=== PATIENT | female | born 1970 | race African-American/Black ===

== ENCOUNTER 2016-04-28 17:35 | Emergency (ER) | payer OTHER ==
[2016-04-28 18:12] VITALS: TEMP 99.3; BMI 29.7
[2016-04-28] MEDS ORDERED: ONDANSETRON *ODT* 4 MG TABLET SL ONE (18:15)
[2016-04-28] MEDS ORDERED: SODIUM CHLORIDE 1,000 ML IV STA ×2 (18:16→20:00)
[2016-04-28] MEDS ORDERED: morphine CARPU-JECT 4 MG/1 ML DISP.SYRIN IVPUSH ONE ×2 (18:16→20:00)
[2016-04-28 18:43] LABS: BASOPHIL 0.3 % (0-2.0); EOSINOPHIL 0.5 % (0-4.5); MCH 21.4 pg (25.7-33.7); MCHC 30.6 g/dl (32.0-36.0); MEAN PLT VOLUME 8.1 fl (7.5-11.1); NEUTROPHILS 83.6 % (42.8-82.8); PLATELET COUNT 285 K/MM3 (134-434); RDW 20.1 % (11.6-15.6)
[2016-04-28] MEDS ORDERED: ONDANSETRON 4 MG/2 ML VIAL IVPUSH ONE (18:57)
[2016-04-28] MEDS ORDERED: ONDANSETRON *ODT* 4 MG TABLET ONE (18:58)
[2016-04-28] MEDS ORDERED: morphine CARPU-JECT 4 MG/1 ML DISP.SYRIN ONE ×2 (18:58→20:08)
[2016-04-28 19:28] LABS: ALK PHOS 67 U/L (45-117); ANION GAP 9 (8-16); BILIRUBIN,TOTAL 0.4 mg/dL (0.2-1.0); CALCIUM 8.1 mg/dL (8.5-10.1); CO2 26 mmol/L (21-32); CREATININE 0.9 mg/dL (0.55-1.02); GLUCOSE,RANDOM 79 mg/dL (74-106); SGOT/AST 12 U/L (15-37); SGPT/ALT 15 U/L (12-78)
[2016-04-28 20:49] LABS: ANISOCYTOSIS 1+; HYPOCHROMIA 2+; MICROCYTOSIS 2+; OVALOCYTES 1+
--- NOTE | 2016-04-28 22:37 | PDOC ---
History of Present Illness - General Chief Complaint: Pain, Acute Stated Complaint: VOMITING/DIARRHEA Time Seen by Provider: 04/28/16 18:20 History Source: Patient Exam Limitations: No Limitations - History of Present Illness Travel History: No Initial Comments: 04/28/16 22:31 46yo Female patient presents to ED c/o severe abd pain with vomiting, diarrhea, chills, and subjective fever. She reports similar symptoms approximately 3 weeks ago, and was evaluated by Oscar Macias. Patient was prescribed antibiotics and was told to f/u with Dr. Keith randolph. She states symptoms went away so she delayed f/u with GI. However, symptoms returned yesterday and worse. LNMP: last week. Last Meal 3 days ago. Denies any other complaints at this time. Timing/Duration: reports: getting worse Quality: reports: severe, stabbing Abdominal Pain Onset Location: reports: LLQ Pain Radiation: reports: no radiation Activities at Onset: reports: no specific activity Treatment Prior to Arrive: improves with: analgesics Past History - Travel Traveled outside of the country in the last 30 days: No Close contact w/someone who was outside of country & ill: No - Past Medical History Allergies/Adverse Reactions: Allergies Allergy/AdvReac Type Severity Reaction Status Date / Time No Known Allergies Allergy Verified 04/28/16 18:08 Home Medications: Ambulatory Orders Ciprofloxacin [Cipro (Restricted To Id)] 500 mg PO BID #20 tablet 04/29/16 Metronidazole [Flagyl -] 500 mg PO TID #21 tablet 04/29/16 Oxycodone Sr [Oxycontin] 10 mg PO BID #14 tab.er.12h MDD 2 TABS 04/29/16 Other medical history: HIATAL HERNIA, CONSTIPATION - Reproductive History Is Patient Now?: No - Psycho/Social/Smoking Cessation Hx Anxiety: No Suicidal Ideation: No Smoking History: Never smoked Have you smoked in the past 12 months: No Information on smoking cessation initiated: No Hx Alcohol Use: No Drug/Substance Use Hx: No Substance Use Type: None Abd/GI Specific PMHX - Complaint Specific PMHX Colitis: No Diverticulitis: No Gall Bladder Disease: No GERD: No Hepatitis: No Irritable Bowel Synd (IBS): No Pancreatitis: No GI Ulcer Disease: No Review of Systems - Review of Systems Able to Perform ROS?: Yes Is the patient limited Hebrew proficient: No Constitutional: Yes: Chills, Fever (Subjective) Respiratory: No: Cough, Orthopnea, Shortness of Breath, Stridor, Wheezing, Hemoptysis Cardiac (ROS): No: Chest Pain, Edema, Lightheadedness, Palpitations, Syncope ABD/GI: Yes: Diarrhea, Nausea, Poor Appetite, Poor Fluid Intake, Vomiting, Other (Abd Pain). No: Blood Streaked Bowels, Constipated, Difficulty Swallowing , Rectal Bleeding : No: Burning, Dysuria, Discharge, Frequency, Flank Pain, Hematuria, Pain, Urgency Musculoskeletal: No: Back Pain Integumentary: No: Bruising, Erythema, Rash Neurological: No: Headache, Seizure, Tremors, Weakness, Ataxia, Dizziness All Other Systems: Reviewed and Negative *Physical Exam - Vital Signs Last Vital Signs Temp Pulse Resp BP Pulse Ox 99.3 F 113 H 18 126/67 100 04/28/16 18:09 04/28/16 18:09 04/28/16 18:09 04/28/16 18:09 04/28/16 18:09 - Physical Exam General Appearance: Yes: Nourished, Appropriately Dressed, Apparent Distress, Moderate Distress Neck: positive: Trachea midline, Normal Thyroid, Supple. negative: Rigid Respiratory/Chest: positive: Lungs Clear, Normal Breath Sounds. negative: Chest Tender, Respiratory Distress, Accessory Muscle Use, Labored Respiration, Rapid RR Cardiovascular: positive: Regular Rhythm, Regular Rate. negative: Edema, JVD, Murmur Gastrointestinal/Abdominal: positive: Tender, Soft, Increased Bowel Sounds, Guarding, Rebound, Tenderness (LLQ/Periumbilical). negative: Distended Musculoskeletal: positive: Normal Inspection. negative: CVA Tenderness Extremity: positive: Normal Capillary Refill, Normal Inspection, Normal Range of Motion Integumentary: positive: Normal Color, Dry, Warm. negative: Erythema, Hives, Rash Neurologic: positive: nuclear design engineer II-XII NML intact, Fully Oriented, Alert, Normal Mood/ Affect, Normal Response, Motor Strength /5 ED Treatment Course - LABORATORY CBC & Chemistry Diagram: 04/28/16 18:30 04/28/16 18:30 - ADDITIONAL ORDERS Additional order review: Laboratory Results 04/28/16 04/28/16 18:30 18:30 Sodium 140 Potassium 3.7 Chloride 105 Carbon Dioxide 26 Anion Gap 9 BUN 12 Creatinine 0.9 Creat Clearance w eGFR > 60 Random Glucose 79 Calcium 8.1 L Total Bilirubin 0.4 AST 12 L ALT 15 Alkaline Phosphatase 67 Total Protein 7.0 Albumin 3.0 L Serum , Qual Negative 04/28/16 18:30 RBC 3.84 MCV 70.0 L MCHC 30.6 L RDW 20.1 H MPV 8.1 Neutrophils % 83.6 H Lymphocytes % 7.9 L Monocytes % 7.7 Eosinophils % 0.5 Basophils % 0.3 - RADIOLOGY Radiology Studies Ordered: Category Date Time Status ABDOMEN & PELVIS CT WITH CONTR [CT] Stat CT Scan 04/28/16 18:15 Ordered - Medications Given in the ED: ED Medications Discontinued Medications Generic Name Dose Route Start Last Admin Trade Name Freq PRN Reason Stop Dose Admin Sodium Chloride 1,000 mls @ 1,000 mls/hr 04/28/16 18:16 04/28/16 19:21 Normal Saline - IV 04/28/16 19:15 1,000 mls/hr ASDIR STA Administration Sodium Chloride 1,000 mls @ 1,000 mls/hr 04/28/16 20:00 04/28/16 20:06 Normal Saline - IV 04/28/16 20:59 1,000 mls/hr ASDIR STA Administration Morphine Sulfate 4 mg 04/28/16 18:16 04/28/16 19:21 Morphine Injection - IVPUSH 04/28/16 18:17 4 mg ONCE ONE Administration Morphine Sulfate 4 mg 04/28/16 20:00 04/28/16 20:06 Morphine Injection - IVPUSH 04/28/16 20:01 4 mg ONCE ONE Administration Ondansetron HCl 4 mg 04/28/16 18:15 04/28/16 19:23 Zofran Odt - SL 04/28/16 18:16 Not Given ONCE ONE Ondansetron HCl 4 mg 04/28/16 18:57 04/28/16 19:21 Zofran Injection IVPUSH 04/28/16 18:58 4 mg ONCE ONE Administration *DC/Admit/Observation/Transfer Diagnosis at time of Disposition: Inflammatory bowel diseases (IBD), Colitis, acute - Discharge Dispostion Disposition: HOME Condition at time of disposition: Improved Admit: No - Prescriptions Prescriptions: Ciprofloxacin [Cipro (Restricted To Id)] 500 mg PO BID #20 tablet Metronidazole [Flagyl -] 500 mg PO TID #21 tablet Oxycodone Sr [Oxycontin] 10 mg PO BID #14 tab.er.12h MDD 2 TABS - Referrals Referrals: Esme Harding MD [Primary Care Provider] - Desean Walker MD [Staff Physician] - - Patient Instructions Printed Discharge Instructions: Inflammatory Bowel Disease, Inflammatory Bowel Disease (IBD) (Alternative Therapy) Additional Instructions: FOLLOW UP WITH DR. WALKER'S OFFICE. CALL TO SCHEDULE APPOINTMENT. TAKE MEDICATIONS PRESCRIBED. DO NOT DRIVE, DRINK ALCOHOL, OR OPERATE HEAVY MACHINERY WHILE TAKING OXYCONTIN. RETURN IF SYMPTOMS WORSEN DISCUSSED. AVOID ALCOHOL, SPICY AND GREASY FOODS, SEEDS AND NUTS, IBUPROFEN USE WELL. ALSO, FOLLOW UP WITH YOUR PRIMARY CARE PROVIDER. Print Language: DIVEHI
--- NOTE | 2016-04-28 22:59 | PDOC ---
*Physical Exam - Vital Signs Last Vital Signs Temp Pulse Resp BP Pulse Ox 99.3 F 113 H 18 126/67 100 04/28/16 18:09 04/28/16 18:09 04/28/16 18:09 04/28/16 18:09 04/28/16 18:09 ED Treatment Course - LABORATORY CBC & Chemistry Diagram: 04/28/16 18:30 04/28/16 18:30 - ADDITIONAL ORDERS Additional order review: Laboratory Results 04/28/16 04/28/16 18:30 18:30 Sodium 140 Potassium 3.7 Chloride 105 Carbon Dioxide 26 Anion Gap 9 BUN 12 Creatinine 0.9 Creat Clearance w eGFR > 60 Random Glucose 79 Calcium 8.1 L Total Bilirubin 0.4 AST 12 L ALT 15 Alkaline Phosphatase 67 Total Protein 7.0 Albumin 3.0 L Serum , Qual Negative 04/28/16 18:30 RBC 3.84 MCV 70.0 L MCHC 30.6 L RDW 20.1 H MPV 8.1 Neutrophils % 83.6 H Lymphocytes % 7.9 L Monocytes % 7.7 Eosinophils % 0.5 Basophils % 0.3 - Medications Given in the ED: ED Medications Discontinued Medications Generic Name Dose Route Start Last Admin Trade Name Freq PRN Reason Stop Dose Admin Sodium Chloride 1,000 mls @ 1,000 mls/hr 04/28/16 18:16 04/28/16 19:21 Normal Saline - IV 04/28/16 19:15 1,000 mls/hr ASDIR STA Administration Sodium Chloride 1,000 mls @ 1,000 mls/hr 04/28/16 20:00 04/28/16 20:06 Normal Saline - IV 04/28/16 20:59 1,000 mls/hr ASDIR STA Administration Morphine Sulfate 4 mg 04/28/16 18:16 04/28/16 19:21 Morphine Injection - IVPUSH 04/28/16 18:17 4 mg ONCE ONE Administration Morphine Sulfate 4 mg 04/28/16 20:00 04/28/16 20:06 Morphine Injection - IVPUSH 04/28/16 20:01 4 mg ONCE ONE Administration Ondansetron HCl 4 mg 04/28/16 18:15 04/28/16 19:23 Zofran Odt - SL 04/28/16 18:16 Not Given ONCE ONE Ondansetron HCl 4 mg 04/28/16 18:57 04/28/16 19:21 Zofran Injection IVPUSH 04/28/16 18:58 4 mg ONCE ONE Administration Medical Decision Making - Medical Decision Making 04/28/16 22:58 agree with care from BOOK CLEANER Parminder *DC/Admit/Observation/Transfer Diagnosis at time of Disposition: Inflammatory bowel diseases (IBD), Colitis, acute - Discharge Dispostion Disposition: HOME Condition at time of disposition: Stable - Prescriptions Prescriptions: Ciprofloxacin [Cipro (Restricted To Id)] 500 mg PO BID #20 tablet Metronidazole [Flagyl -] 500 mg PO TID #21 tablet Oxycodone Sr [Oxycontin] 10 mg PO BID #14 tab.er.12h MDD 2 TABS Ondansetron [Zofran Odt -] 4 mg SL Q8H PRN #30 od.tablet PRN Reason: Nausea - Referrals Referrals: Desean Parker MD [Staff Physician] - Esme Harding MD [Primary Care Provider] - - Patient Instructions Printed Discharge Instructions: Inflammatory Bowel Disease (IBD) (Alternative Therapy), Inflammatory Bowel Disease Additional Instructions: FOLLOW UP WITH DR. PARKER'S OFFICE. CALL TO SCHEDULE APPOINTMENT. TAKE MEDICATIONS PRESCRIBED. DO NOT DRIVE, DRINK ALCOHOL, OR OPERATE HEAVY MACHINERY WHILE TAKING OXYCONTIN. RETURN IF SYMPTOMS WORSEN DISCUSSED. AVOID ALCOHOL, SPICY AND GREASY FOODS, SEEDS AND NUTS, IBUPROFEN USE WELL. ALSO, FOLLOW UP WITH YOUR PRIMARY CARE PROVIDER. Print Language: MALAY - Post Discharge Activity Work/School Note: Back to Work
[2016-04-28] MEDS ORDERED: LEVOFLOXACIN 750 MG IVPB 150 ML IVPB ONE (23:52)
[2016-04-28] MEDS ORDERED: METRONIDAZOLE 500 MG PREMIXED 100 ML IVPB ONE (23:52)
[2016-04-29] MEDS ORDERED: LEVOFLOXACIN 750 MG IVPB 150 ML IVPB ONE (00:18)
[2016-04-29] MEDS ORDERED: METRONIDAZOLE 500 MG PREMIXED 100 ML IVPB ONE (00:18)
[2016-04-29 01:54] VITALS: BP 123/70; PULSE 78
[2016-04-29] MEDS ORDERED: ONDANSETRON *ODT* 4 MG TABLET ONE (02:09)
[2016-04-29] MEDS ORDERED: ONDANSETRON *ODT* 4 MG TABLET SL ONE (02:09)
== END 2016-04-29 01:54 | disposition home or self-care (01) ==
LOC: JER 17:35
PROC: 3E03329 Introduction of Other Anti-infective into Peripheral Vein, Percutaneous Approach (ICD-10-PCS; principal; 2016-04-28)
PROC: 3E0 Administration, Physiological Systems and Anatomical Regions, Introduction (ICD-10-PCS; 2016-04-28)
DX: K58.0 Irritable bowel syndrome with diarrhea (principal)
CPT/HCPCS: 36415; 74177-TC; 80053; 84703; 85025; 87040; 99284-25; Q9967

== ENCOUNTER 2016-12-30 05:16 | Inpatient (IN) | payer OTHER ==
[2016-12-29 09:34] VITALS: BMI 28.1
[2016-12-30] MEDS ORDERED: MIDAZOLAM HCL 2 MG/2 ML SINGLE DOSE VIAL ONE ×3 (07:20→08:14)
--- NOTE | 2016-12-30 08:06 | HP ---
Past Medical History - Primary Care Physician PCP:: Kni Trevino - Admission Chief Complaint: pelvic pain, menorrhagia, anemia, fibroid uterus History of Present Illness: 46 yo f lmp one week ago with hx of menorrhagia, pelvic pain, anemia. on iron transfusion, and hx of large fibroid uterus admitted for supracervical abdominal hysterectomy, risk of procedure and complication has discussed with patient History Source: Patient Limitations to Obtaining History: No Limitations - Past Medical History ...: 3 ...Para: 3 Heme/Onc: Yes: Anemia - Past Surgical History Hx Myomectomy: No Hx Transabdominal Cerclage: No - Smoking History Smoking history: Never smoked Have you smoked in the past 12 months: No - Alcohol/Substance Use Hx Alcohol Use: No - Social History History of Recent Travel: No Home Medications - Allergies Allergies/Adverse Reactions: Allergies Allergy/AdvReac Type Severity Reaction Status Date / Time No Known Allergies Allergy Verified 12/30/16 07:13 - Home Medications Home Medications: Ambulatory Orders Ferrous Sulfate 325 mg PO BID 12/29/16 Review of Systems - Review of Systems Constitutional: reports: Weakness Eyes: reports: No Symptoms HENT: reports: No Symptoms Neck: reports: No Symptoms Cardiovascular: reports: No Symptoms Respiratory: reports: No Symptoms Gastrointestinal: reports: No Symptoms Genitourinary: reports: No Symptoms Breasts: reports: No Symptoms Reported Musculoskeletal: reports: No Symptoms Integumentary: reports: No Symptoms Neurological: reports: No Symptoms Endocrine: reports: No Symptoms Hematology/Lymphatic: reports: No Symptoms Psychiatric: reports: No Symptoms Physical Exam-TANBARK PEELER Vital Signs: Vital Signs Temperature 98.2 F 12/30/16 07:12 Pulse Rate 90 12/30/16 07:12 Respiratory Rate 20 12/30/16 07:12 Blood Pressure 127/84 12/30/16 07:12 O2 Sat by Pulse Oximetry (%) 98 12/30/16 07:07 Constitutional: Yes: Obese HENT: Yes: WNL Neck: Yes: WNL Cardiovascular: Yes: WNL Respiratory: Yes: WNL Gastrointestinal: Yes: Abdomen, Obese (palpabel 20 weeks size fibroid uterus, tender) Renal/: Yes: WNL Pelvis: Yes: WNL External Genitalia: Yes: Normal Internal Exam Deferred: No Vaginal Exam: Yes: Normal Cervix: Yes: Normal Uterus: Yes: Enlarged, Lumpy, Mass, Tender (18 to 20 weeks size) Problem List - Problem (1) Menorrhagia Code(s): N92.0 - EXCESSIVE AND FREQUENT MENSTRUATION WITH REGULAR CYCLE Qualifiers: Menorrahagia type: with regular cycle Qualified Code(s): N92.0 - Excessive and frequent menstruation with regular cycle; N92.0 - Excessive and frequent menstruation with regular cycle (2) Anemia Code(s): D64.9 - ANEMIA, UNSPECIFIED Qualifiers: Anemia type: iron deficiency Iron deficiency anemia type: chronic blood loss Qualified Code(s): D50.0 - Iron deficiency anemia secondary to blood loss (chronic); D50.0 - Iron deficiency anemia secondary to blood loss (chronic) (3) Fibroid (bleeding) (uterine) Code(s): D25.9 - LEIOMYOMA OF UTERUS, UNSPECIFIED Qualifiers: Uterine leiomyoma location: intramural Qualified Code(s): D25.1 - Intramural leiomyoma of uterus; D25.1 - Intramural leiomyoma of uterus (4) Pelvic pain Code(s): R10.2 - PELVIC AND PERINEAL PAIN Assessment/Plan supracervical abdominal hysterectomy, possible BSO
[2016-12-30] MEDS ORDERED: PROPOFOL 20 ML ONE (08:10)
[2016-12-30] MEDS ORDERED: ROCURONIUM BROMIDE 50 MG/5 ML VIAL ONE (08:11)
[2016-12-30] MEDS ORDERED: ceFAZolin SODIUM 1 GM VIAL IVPB ONE (08:19)
[2016-12-30] MEDS ORDERED: KETOROLAC TROMETHAMINE 30 MG/1 ML VIAL ONE (09:13)
[2016-12-30] MEDS ORDERED: NEOSTIGMINE METHYLSULFATE 0.5 MG/ML - 10 ML MDV ONE (09:13)
[2016-12-30] MEDS ORDERED: GLYCOPYRROLATE 0.2 MG/1 ML VIAL ONE (09:13)
[2016-12-30] MEDS ORDERED: DEXAMETHASONE SOD PHOSPHATE 4 MG/1 ML VIAL ONE (09:13)
[2016-12-30] MEDS ORDERED: LIDOCAINE HCL/PF 2% SDV 5ML VIAL ONE (09:13)
[2016-12-30] MEDS ORDERED: ceFAZolin SODIUM 1 GM VIAL ONE (09:13)
[2016-12-30] MEDS ORDERED: LIDOCAINE HCL 2% JELLY (5 ML/TUBE) ONE (09:13)
[2016-12-30] MEDS ORDERED: ROPIVACAINE HCL 0.5% 30ML VIAL ONE (09:36)
[2016-12-30] MEDS ORDERED: ONDANSETRON 4 MG/2 ML VIAL IVPUSH PRN ×3 (09:51→10:38)
[2016-12-30] MEDS ORDERED: PROMETHAZINE HCL 25 MG/1 ML VIAL IVPB PRN (09:51)
[2016-12-30] MEDS ORDERED: HYDROmorphone *PCA* 10MG/50ML DISP.SYRIN PCA ONE (09:56)
[2016-12-30] MEDS ORDERED: CEFAZOLIN 2 GM in DEXTROSE 5%-WATER - 50 ML IVPB ONE (10:00)
[2016-12-30] MEDS ORDERED: LACTATED RINGERS SOLUTION 1,000 ML IV SCH (10:00)
[2016-12-30] MEDS: HYDROmorphone *PCA* 10MG/50ML DISP.SYRIN PCA SCH ×2 (10:17→16:52)
[2016-12-30] MEDS ORDERED: IBUPROFEN 800 MG/8 ML IJ IVPB PRN (10:38)
[2016-12-30] MEDS ORDERED: DEXAMETHASONE SOD PHOSPHATE 4 MG/1 ML VIAL IVPUSH PRN (10:40)
[2016-12-30] MEDS ORDERED: oxyCODONE HCL 5 MG TABLET PO PRN (10:52)
[2016-12-30] MEDS ORDERED: CEFAZOLIN 1 GM/D5W 50 ML IVPB SCH ×2 (17:00→18:00)
[2016-12-30] MEDS: ELECTROLYTE-148 SOLN 1,000 ML IV SCH (17:36)
[2016-12-30] MEDS: CEFAZOLIN 1 GM/D5W 50 ML IVPB SCH (18:33)
[2016-12-31] MEDS: CEFAZOLIN 1 GM/D5W 50 ML IVPB SCH ×2 (01:26→09:31)
[2016-12-31 08:48] LABS: ANION GAP 11 (8-16); CO2 27 mmol/L (21-32); GLUCOSE,RANDOM 85 mg/dL (74-106)
[2016-12-31 08:49] LABS: CREATININE 0.6 mg/dL (0.55-1.02)
[2016-12-31 08:55] LABS: MCH 25.5 pg (25.7-33.7); MCHC 31.8 g/dl (32.0-36.0); PLATELET COUNT 251 K/MM3 (134-434); WHITE BLOOD COUNT 14.1 K/mm3 (4.0-10.0)
[2016-12-31] MEDS: ENOXAPARIN NA (PORCINE) 40 MG/0.4 ML DISP.SYRIN SQ SCH (09:26)
[2016-12-31] MEDS: HYDROmorphone *PCA* 10MG/50ML DISP.SYRIN PCA SCH (09:27)
--- NOTE | 2016-12-31 12:59 | PN ---
Progress Note (short form) - Note Progress Note: Anesthesia postop note 46 y/o F s/p GA for Hysterectomy, support merchandiser for pain management POD#1, vss, aaox3, ambulating, tolerating po Will d/c support merchandiser No anesthesia complications.
--- NOTE | 2016-12-31 13:52 | PATH ---
Surgical Pathology Report Patient Name: [facility]REW [facility]. Rec. #: [id number] /Age/Gender: 1970 (Age: 46) / F Account: [id number] Location: [facility] MED/SURG Taken: 12/30/2016 Received: 12/30/2016 Reported: 12/31/2016 Physicians: Kin Trevino M.D. Specimen(s) Received UTERUS, RIGHT AND LEFT FALLOPIAN TUBE AND LEFT OVARIAN CYST Clinical History Fibroid uterus, pelvic pain, anemia, menorrhagia Final Diagnosis UTERUS WITH RIGHT AND LEFT FALLOPIAN TUBES AND LEFT OVARIAN CYST, SUPRACERVICAL HYSTERECTOMY WITH BILATERAL SALPINGECTOMY AND LEFT OVARIAN CYSTECTOMY: UTERUS, 994 GRAMS, WITH ADENOMYOSIS, LEIOMYOMATA, AND PROLIFERATIVE ENDOMETRIUM. BENIGN BILATERAL FALLOPIAN TUBES PRESENT. PORTION OF OVARIAN TISSUE WITH BENIGN LUTEAL CYST PRESENT. Electronically Signed Magen Wadsworth M.D. Gross Description Received in formalin labeled "uterus, right and left fallopian tube, left ovarian cyst," is a 994 g supracervically amputated uterus with bilateral attached fallopian tubes. There are no ovaries present. The specimen measures 13.5 cm from superior to inferior, 11.5 cm from left to right and 11.0 cm from anterior to posterior. The serosa is pink-dillon with focal bulging subserosal nodules. The endometrial cavity measures 9 cm in length and 3.5 cm from cornu to cornu. The endometrium is hyperemic and averages 0.3 cm in thickness. The myometrium displays multiple intramural nodules, measuring up to 6 cm in greatest dimension. The remaining myometrium is dillon-pink and trabeculated with focal pinpoint hemorrhages, consistent with adenomyosis. The myometrium measures up to 5.5 cm in thickness. The cut surface of the subserosal and intramural nodules is dillon, firm to rubbery with whorled architecture. No areas of hemorrhage or necrosis are identified. The left fimbriated fallopian tube measures 5 cm in length. The outer surface is lucas purple and smooth. Sectioning reveals an unremarkable lumen. The right fimbriated fallopian tube measures 5.5 cm in length. The outer surface is lucas purple and smooth. Sectioning reveals an unremarkable lumen. Separately received within the same container is a 1.8 x 1.3 x 0.7 cm portion of saucedo purple soft tissue. Sectioning reveals hemorrhagic parenchyma. Custom Feed Mill Operator Helper sections are submitted in 16 cassettes as follows: 1-cervical stump margin of resection; 3-5-pbbciyvcbhkjbb; 1-2-ksvwvezqsu nodules; 8-76-kpzhihmktw nodules; 12-left fallopian tube fimbria; 13-cross sections of left fallopian tube; 14-right fallopian tube fimbria; 15-cross sections of right fallopian tube; 16-separately received portion of soft tissue. 12/30/2016 [facility]12/30/2016
[2016-12-31] MEDS: IBUPROFEN 600 MG TABLET (FP) PO PRN (15:19)
[2016-12-31] MEDS: ELECTROLYTE-148 SOLN 1,000 ML IV SCH (15:22)
--- NOTE | 2016-12-31 22:18 | PN ---
Progress Note (short form) - Note Progress Note: pod1 doing well , ambulating . tolerating diet CBC, BMP 12/31/16 07:00 10 abdomen soft, no disrension, no cva incision dry, clean no calf tenderness no vaginal bleeding plan mbulate, pain management, dvt prophylactic Problem List - Problems (1) Menorrhagia Code(s): N92.0 - EXCESSIVE AND FREQUENT MENSTRUATION WITH REGULAR CYCLE Qualifiers: Menorrahagia type: with regular cycle Qualified Code(s): N92.0 - Excessive and frequent menstruation with regular cycle; N92.0 - Excessive and frequent menstruation with regular cycle (2) Anemia Code(s): D64.9 - ANEMIA, UNSPECIFIED Qualifiers: Anemia type: iron deficiency Iron deficiency anemia type: chronic blood loss Qualified Code(s): D50.0 - Iron deficiency anemia secondary to blood loss (chronic); D50.0 - Iron deficiency anemia secondary to blood loss (chronic) (3) Fibroid (bleeding) (uterine) Code(s): D25.9 - LEIOMYOMA OF UTERUS, UNSPECIFIED Qualifiers: Uterine leiomyoma location: intramural Qualified Code(s): D25.1 - Intramural leiomyoma of uterus; D25.1 - Intramural leiomyoma of uterus (4) Pelvic pain Code(s): R10.2 - PELVIC AND PERINEAL PAIN
--- NOTE | 2017-01-01 08:18 | DS ---
Physical Exam-BODY LINE FINISHER Vital Signs: Vital Signs Temperature 97.7 F 01/01/17 07:55 Pulse Rate 82 01/01/17 07:55 Respiratory Rate 20 01/01/17 07:55 Blood Pressure 128/81 01/01/17 07:55 O2 Sat by Pulse Oximetry (%) 98 12/31/16 21:00 Constitutional: Yes: Well Nourished, No Distress, Calm Eyes: Yes: WNL, Conjunctiva Clear, EOM Intact HENT: Yes: WNL, Atraumatic, Normocephalic Neck: Yes: WNL, Supple, Trachea Midline Cardiovascular: Yes: WNL, Regular Rate and Rhythm Respiratory: Yes: WNL, Regular, CTA Bilaterally Gastrointestinal: Yes: WNL ...Rectal Exam: Yes: WNL Renal/: Yes: WNL Pelvis: Yes: WNL External Genitalia: Yes: Normal Breast(s): Yes: WNL Musculoskeletal: Yes: WNL Extremities: Yes: WNL Edema: No Integumentary: Yes: WNL Wound/Incision: Yes: Clean/Dry, Well Approximated, Sutures Intact Neurological: Yes: WNL, Alert, Oriented ...Motor Strength: WNL Psychiatric: Yes: WNL, Alert, Oriented Labs: CBC, BMP 12/31/16 07:00 12/31/16 07:00 Discharge Summary Reason For Visit: FIBROIDS UTERUS Current Active Problems Anemia (Acute) Fibroid (bleeding) (uterine) (Acute) Menorrhagia (Acute) Pelvic pain (Acute) Procedures: Principal: supracervical abdominal hysterectomy, bilateral salpingectomy , rt ovarian cystectomy Hospital Course: uneventful Condition: Good - Instructions Diet, Activity, Other Instructions: Activity as tolerated May take shower Keep the incision clean and dry NO heavy lifting Encourage fluid intake Any fever or any drainage from the incision , pls call MD Referrals: Kin Trevino MD [Staff Physician] - Disposition: HOME - Home Medications Comprehensive Discharge Medication List: Ambulatory Orders Ferrous Sulfate 325 mg PO BID 12/29/16 Ibuprofen [Motrin -] 600 mg PO QID #28 tablet 12/31/16
--- NOTE | 2017-01-01 09:04 | OP ---
DATE OF OPERATION: 12/30/2016 PREOPERATIVE DIAGNOSIS: Pelvic pain, menorrhagia, anemia, and large fibroid uterus. POSTOPERATIVE DIAGNOSIS: Pelvic pain, menorrhagia, anemia, and large fibroid uterus, right ovarian cyst. SURGEON: Karen Conner MD ATTORNEY GENERAL: Latrice Noyola M.D ANESTHESIA: General. ESTIMATED BLOOD LOSS: 50 mL. DESCRIPTION OF PROCEDURE: The patient was taken to the operating room and had adequate general anesthesia. The abdomen and perineum were prepped and draped. A Pfannenstiel abdominal skin incision was made. The abdominal wall was cut layer by layer until the peritoneum was exposed and incised. Upon entering the abdominal cavity, the upper abdomen was checked and was normal. There was a large fibroid uterus extending to the umbilical area, with multiple leiomyomata. There was also a 3-cm hemorrhagic right ovarian cyst. Otherwise both ovaries appeared to be normal. The bladder was normal. The cul-de-sac was free of adhesions. The bowels were normal. Both round ligaments were identified and grasped with bipolar LigaSure cautery, cauterized and cut. The anterior leaf of the broad ligament was opened. A hole was made into the broad ligament. The ovarian ligament was grasped with bipolar LigaSure cautery, cauterized, cut and severed from the uterus bilaterally. Both tubes were removed along with mesosalpinx with bipolar cautery. The bladder was pushed down. The uterine artery was identified bilaterally, grasped with a Puja clamp and cut. The clamp was replaced with 0 Vicryl suture bilaterally. At this time the bladder was further pushed down. The paracervical area was identified, clamped and cut, and the clamp replaced with 0 Vicryl suture bilaterally. At this time the specimen was removed above the cervix. Then the cervix was grasped with a Puja clamp and sutured with 0 Vicryl suture. Hemostasis was established. Then the pelvic cavity was irrigated. No active bleeding was seen. Pelvic reperitonealization was done with continuous suture of 2-0 Vicryl. No active bleeding was seen. All the lap, sponge and instrument counts were correct. There was a right ovarian cyst, approximately 3 cm, which was hemorrhagic. It was grasped with bipolar LigaSure cautery, cauterized, cut and removed from the right ovary. Then the peritoneum was closed with 0 Biosyn continuous suture. The muscles were brought together with interrupted suture of 0 Biosyn. The fascia was closed with 0 Biosyn continuous suture. The subcutaneous fat was closed with interrupted suture of 0 Biosyn, and the skin was closed with 4-0 Biosyn subcuticular continuous suture. The patient tolerated the procedure well, and left the OR in good condition. KAREN CONNER M.D. [id number]
[2017-01-01] MEDS: IBUPROFEN 600 MG TABLET (FP) PO PRN (09:08)
[2017-01-01] MEDS: ENOXAPARIN NA (PORCINE) 40 MG/0.4 ML DISP.SYRIN SQ SCH (09:09)
[2017-01-01 10:54] VITALS: BP 134/80; PULSE 83; TEMP 98.4
== END 2017-01-01 11:30 | disposition home or self-care (01) | DRG 743 ==
LOC: JSAMEDAYSX 05:16 → J8W 16:37
PROVIDERS: ADMIT Obstetrics & Gynecology; ATTEND Obstetrics & Gynecology
PROC: 0UT78ZZ Resection of Bilateral Fallopian Tubes, Via Natural or Artificial Opening Endoscopic (ICD-10-PCS; 2016-12-30)
PROC: 0UB08ZZ Excision of Right Ovary, Via Natural or Artificial Opening Endoscopic (ICD-10-PCS; 2016-12-30)
PROC: 0UT98ZL Resection of Uterus, Supracervical, Via Natural or Artificial Opening Endoscopic (ICD-10-PCS; principal; 2016-12-30 08:00)
DX: D25.9 Leiomyoma of uterus, unspecified (principal); E66.9 Obesity, unspecified; Z68.29 Body mass index [BMI] 29.0-29.9, adult; D64.9 Anemia, unspecified; N83.201 Unspecified ovarian cyst, right side
CPT/HCPCS: 36415; 80048; 84703; 85027; 86850; 86870; 86900; 86901; 86902; 88307-TC; 94760

== ENCOUNTER 2021-12-14 11:00 | Emergency (ER) | payer OTHER ==
[2021-12-14 11:16] VITALS: BP 135/91; PULSE 109; RESP 18; TEMP 97.8; BMI 28.8
[2021-12-14] MEDS ORDERED: LIDOCAINE 5% TOPICAL PATCH TP ONE (11:58)
[2021-12-14] MEDS ORDERED: KETOROLAC TROMETHAMINE 30 MG/1 ML VIAL IM ONE (11:58)
[2021-12-14] MEDS ORDERED: LIDOCAINE 5% TOPICAL PATCH ONE (12:02)
[2021-12-14] MEDS ORDERED: KETOROLAC TROMETHAMINE 30 MG/1 ML VIAL ONE (12:02)
[2021-12-14] MEDS ORDERED: LIDOCAINE PATCH REMOVAL MC SCH (22:00)
== END 2021-12-14 12:07 | disposition home or self-care (01) ==
LOC: JER 11:00 → JERFT 11:00
PROC: 3E0233Z Introduction of Anti-inflammatory into Muscle, Percutaneous Approach (ICD-10-PCS; principal; 2021-12-14)
DX: M54.50 Low back pain, unspecified (principal)
CPT/HCPCS: 99283-25

== ENCOUNTER 2023-10-16 15:06 | Emergency (ER) | payer OTHER ==
[2023-10-16 15:09] VITALS: BP 116/74; PULSE 92; RESP 18; TEMP 97.9; BMI 22.8
[2023-10-16] MEDS ORDERED: IBUPROFEN 600 MG TABLET (FP) PO ONE (16:41)
[2023-10-16] MEDS: IBUPROFEN 600 MG TABLET (FP) PO ONE (16:41)
== END 2023-10-16 16:57 | disposition home or self-care (01) ==
LOC: JERFT 15:06
DX: S92.512A Displaced fracture of proximal phalanx of left lesser toe(s), initial encounter for closed fracture (principal); W22.8XXA Striking against or struck by other objects, initial encounter
CPT/HCPCS: 73660-TC-LT-FY; 99283-25